=== PATIENT | female | born 1965 | race Caucasian/White ===

== ENCOUNTER 2019-07-21 09:50 | Emergency (ER) | payer BC ==
[~2019-07-21] VITALS: Ht 160 cm; Wt 59.0 kg
[2019-07-21] MEDS ORDERED: Sudogest60 MG PO (11:17)
== END 2019-07-21 11:27 | disposition home or self-care (01) ==
LOC: ER 09:50
DX: H93.8X1 Other specified disorders of right ear (principal)
CPT/HCPCS: 99283